=== PATIENT | female | born 1955 | race Caucasian/White ===

== ENCOUNTER → 2020-09-17 | Outpatient (CLI) | payer MEDICARE, OTHER ==
[~2020-09-17] MED LIST: COZAAR100 MG PO; JANUMET XR 1001 EACH PO; LANTUS100 UNIT/1 SQ; PRAVACHOL40 MG PO; SYNTHROID 150150 MCG PO
== END ==
LOC: KOH-I 10:48
DX: M53.3 Sacrococcygeal disorders, not elsewhere classified (principal)
CPT/HCPCS: 72202

== ENCOUNTER → 2020-09-30 | Outpatient (CLI) | payer MEDICARE, OTHER | LOC: MAMO 13:57 | DX: Z12.31 Encounter for screening mammogram for malignant neoplasm of breast (principal) | CPT/HCPCS: 77063; 77067 ==

== ENCOUNTER → 2021-01-26 | Day surgery (SDC) | payer MEDICARE, OTHER ==
[~2021-01-26] MED LIST changes: +BASAGLAR K100 UNIT/1 SC; +HARD NAILS2500 MCG PO; +OZEMPIC1 MG/0.71 SQ; +VITAMIN B-121000 MCG PO; +VITAMIN D325 MCG PO
== END | disposition home or self-care (01) ==
LOC: OR 08:05
PROVIDERS: Surgery
PROC: 0DJD8ZZ Inspection of Lower Intestinal Tract, Via Natural or Artificial Opening Endoscopic (ICD-10-PCS; principal; 2021-01-26 09:45)
DX: Z12.11 Encounter for screening for malignant neoplasm of colon (principal); K21.9 Gastro-esophageal reflux disease without esophagitis; I10 Essential (primary) hypertension; E03.9 Hypothyroidism, unspecified; E11.51 Type 2 diabetes mellitus with diabetic peripheral angiopathy without gangrene; I70.219 Atherosclerosis of native arteries of extremities with intermittent claudication, unspecified extremity; E78.5 Hyperlipidemia, unspecified; Z20.822 Contact with and (suspected) exposure to COVID-19; Z86.010 Personal history of colon polyps; Z79.82 Long term (current) use of aspirin; Z79.02 Long term (current) use of antithrombotics/antiplatelets; Z79.4 Long term (current) use of insulin; Z79.899 Other long term (current) drug therapy; Z87.891 Personal history of nicotine dependence
CPT/HCPCS: 82962; J2704; J7120